=== PATIENT | female | born 1985 | race Caucasian/White ===

== ENCOUNTER 2020-08-27 18:44 | Emergency (ER) | payer OTHER ==
[~2020-08-27] VITALS: Ht 157.5 cm; Wt 56.7 kg
[~2020-08-27 18:44] MED LIST: AMOXICILLIN 50500 M1; DORZOLAMIDE HCL10 ML OP; GLAUCOMA EYE DROPS; ISTALOL2.5 ML OP; KEFLEX500 MG PO; LUMIGAN2.5 M1 OP; MEDROL DOSPAK21 TAB PO; PYRIDIUM200 MG PO; ZANTAC 150MG T150 MG PO; ZPAK PO
[2020-08-27 19:01] VITALS: BP 110/71
[2020-08-27] MEDS ORDERED: FLUOXETINE HCL20 M1 PO (19:06)
[2020-08-27] MEDS ORDERED: OMEPRAZOLE 20 M20 M1 PO (19:07)
== END 2020-08-27 19:19 | disposition left against medical advice (07) ==
LOC: M.ERS 18:44
DX: M79.604 Pain in right leg (principal); M79.605 Pain in left leg; Z53.21 Procedure and treatment not carried out due to patient leaving prior to being seen by health care provider